=== PATIENT | male | born 1955 | race Caucasian/White ===

== ENCOUNTER 2021-09-26 08:10 | Emergency (ER) | payer BC, MEDICARE ==
[~2021-09-26] VITALS: Ht 170.2 cm; Wt 86.0 kg
[~2021-09-26 08:10] MED LIST: MVI PO
[2021-09-26] MEDS ORDERED: KETOROLAC 30MG/ML VIAL IV STA (08:17)
[2021-09-26] MEDS ORDERED: SODIUM CHLORIDE 0.9% 1,000 ML IV ONE (08:30)
[2021-09-26 09:00] LABS: CLARITY URINE CLEAR (CLEAR); COLOR URINE YELLOW (YELLOW); KETONES URINE NEGATIVE (NEGATIVE); LEUKOCYTE ESTERASE URINE NEGATIVE (NEGATIVE); NITRITE URINE NEGATIVE (NEGATIVE); OCCULT BLOOD URINE 3+ (NEGATIVE); PH URINE 6.5 (4.5-8.0); PROTEIN URINE NEGATIVE (NEGATIVE); SPECIFIC GRAVITY URINE 1.011 (1.005-1.030); UROBILINOGEN URINE 0.2 E.U./dL (0.2-1.0)
[2021-09-26 09:37] LABS: BASOPHILS % 0.5 % (0.0-2.0); EOSINOPHILS % 1.5 % (0.0-5.0); HEMATOCRIT. 41.3 % (42.0-52.0); HEMOGLOBIN. 14.1 g/dL (14.0-18.0); LYMPHOCYTES % 23.1 % (20.0-50.0); MEAN CORPUSCULAR HEMOGLOBIN 31.2 pg (28.0-32.0); MEAN CORPUSCULAR VOLUME 91.5 fL (80.0-94.0); MONOCYTES % 9.4 % (2.0-8.0); NEUTROPHILS % 65.5 % (40.0-76.0); PLATELET 305 x1000/uL (130-400); RED BLOOD CELL COUNT 4.52 mill/uL (4.7-6.1); RED CELL DISTRIBUTION WIDTH 13.5 % (11.6-14.6)
[2021-09-26 09:42] LABS: CHLORIDE 106 mEq/L (98-107)
[2021-09-26] MEDS ORDERED: KETOROLAC 30MG/ML VIAL IV NR (10:00)
[2021-09-26] MEDS ORDERED: TAMSULOSIN HCL 0.4MG SR CAPSULE PO ONE (10:15)
[2021-09-26] MEDS ORDERED: ONDA4TAB11 PO (11:04)
[2021-09-26] MEDS ORDERED: TRAM50TA3 MT (11:04)
[2021-09-26] MEDS ORDERED: CEPH500C2 MT (11:04)
[2021-09-26] MEDS ORDERED: TAMS-11 MT (11:04)
[2021-09-26 12:01] VITALS: BP 146/75
== END 2021-09-26 12:03 | disposition home or self-care (01) ==
LOC: ER 08:10
DX: N13.2 Hydronephrosis with renal and ureteral calculous obstruction (principal); I10 Essential (primary) hypertension; E05.90 Thyrotoxicosis, unspecified without thyrotoxic crisis or storm; K57.10 Diverticulosis of small intestine without perforation or abscess without bleeding; K80.20 Calculus of gallbladder without cholecystitis without obstruction
CPT/HCPCS: 36415; 74176; 80053; 81003; 83690; 85025; 87086; 96374; 99284; J1885; J7030

== ENCOUNTER 2021-10-25 12:45 | Inpatient (IN) | payer MEDICARE ==
[~2021-10-25] VITALS: Ht 170.2 cm; Wt 86.2 kg
[~2021-10-25 12:45] MED LIST changes: +CEPH500C2 MT; +ONDA4TAB11 PO; +TAMS-11 MT; +TRAM50TA3 MT
[2021-10-25 14:36] LABS: BASOPHILS % 0.2 % (0.0-2.0); HEMATOCRIT. 43.2 % (42.0-52.0); HEMOGLOBIN. 14.6 g/dL (14.0-18.0); LYMPHOCYTES % 12.8 % (20.0-50.0); MEAN CORPUSCULAR HEMOGLOBIN 30.6 pg (28.0-32.0); MEAN CORPUSCULAR VOLUME 90.4 fL (80.0-94.0); MEAN PLATELET VOLUME 7.9 fl (7.4-10.4); MONOCYTES % 8.2 % (2.0-8.0); NEUTROPHILS % 78.8 % (40.0-76.0); PLATELET 282 x1000/uL (130-400); RED BLOOD CELL COUNT 4.78 mill/uL (4.7-6.1); RED CELL DISTRIBUTION WIDTH 13.2 % (11.6-14.6)
[2021-10-25 14:48] LABS: CHLORIDE 103 mEq/L (98-107)
[2021-10-25] MEDS ORDERED: MORPHINE SULFATE 4 MG/ML CPJ (NOT FOR IM USE) IV STA (15:47)
[2021-10-25] MEDS ORDERED: ONDANSETRON HCL 4MG/2ML INJ IV STA (15:47)
[2021-10-25] MEDS ORDERED: SODIUM CHLORIDE 0.9% 1,000 ML IV ONE (16:00)
[2021-10-25] MEDS ORDERED: PIPERACILLIN/TAZOBACTAM 3.375GM/50ML PREMIX IV ONE (16:15)
[2021-10-25 16:17] LABS: CLARITY URINE CLEAR (CLEAR); COLOR URINE DARK YELLOW (YELLOW); KETONES URINE TRACE (NEGATIVE); LEUKOCYTE ESTERASE URINE TRACE (NEGATIVE); NITRITE URINE NEGATIVE (NEGATIVE); OCCULT BLOOD URINE NEGATIVE (NEGATIVE); PROTEIN URINE TRACE (NEGATIVE); SPECIFIC GRAVITY URINE 1.022 (1.005-1.030)
[2021-10-25] MEDS ORDERED: PIPERACILLIN/TAZ 3.375G PREMIX 50 ML IV NR (16:30)
[2021-10-25] MEDS ORDERED: ONDANSETRON HCL 4MG/2ML INJ IV PRN (17:30)
[2021-10-25] MEDS: DEXT 5%/0.45% NACL 1000ML 1,000 ML IV SCH (18:01)
[2021-10-25] MEDS: ENOXAPARIN 40MG/0.4ML SYR SUBCUT SCH (18:16)
[2021-10-25] MEDS: ACETAMINOPHEN 325MG TABLET PO PRN (20:00)
[2021-10-25 22:00] VITALS: BP 122/80
[2021-10-25] MEDS ORDERED: PIPERACILLIN/TAZOBACTAM 3.375 G in DEXTROSE 5% WATER 50 ML IV SCH (23:00)
[2021-10-25 23:23] VITALS: BP 127/80
[2021-10-26] VITALS: BP 131/77
[2021-10-26] MEDS: PIPERACILLIN/TAZOBACTAM 3.375 G in DEXTROSE 5% WATER 50 ML IV SCH ×4 (00:52→21:38)
[2021-10-26] MEDS: ACETAMINOPHEN 325MG TABLET PO PRN ×3 (03:25→16:41)
[2021-10-26] MEDS: DEXT 5%/0.45% NACL 1000ML 1,000 ML IV SCH ×2 (03:26→13:57)
[2021-10-26] MEDS ORDERED: MORPHINE SULFATE 2 MG/ML CPJ (NOT FOR IM USE) IV NR (03:30)
[2021-10-26 04:00] VITALS: BP 123/77
[2021-10-26 08:00] VITALS: BP 134/85
[2021-10-26] MEDS ORDERED: HYDROMORPHONE HCL/PF 2MG/ML CPJ IV PRN (08:45)
[2021-10-26] MEDS ORDERED: NALOXONE HCL 0.4MG/ML VIAL IV PRN (08:45)
[2021-10-26 13:14] LABS: HEMOGLOBIN. 13.9 g/dL (14.0-18.0); MEAN CORPUSCULAR HEMOGLOBIN 30.5 pg (28.0-32.0); MEAN PLATELET VOLUME 8.3 fl (7.4-10.4); PLATELET 243 x1000/uL (130-400); RED BLOOD CELL COUNT 4.57 mill/uL (4.7-6.1); RED CELL DISTRIBUTION WIDTH 13.5 % (11.6-14.6)
[2021-10-26 14:30] LABS: CHLORIDE 104 mEq/L (98-107)
[2021-10-26 14:41] LABS: AMYLASE 652 IU/L (25-115)
[2021-10-26 14:46] LABS: T4 FREE 1.26 ng/dL (0.76-1.46)
[2021-10-26 16:00] VITALS: BP 119/84
[2021-10-26 16:22] LABS: CREATINE KINASE 505 IU/L (39-308); CREATINE KINASE MB FRACTION 1.5 ng/mL (0.5-3.6)
[2021-10-26] MEDS: ENOXAPARIN 40MG/0.4ML SYR SUBCUT SCH (17:33)
[2021-10-26 20:00] VITALS: BP 132/65
[2021-10-26 21:13] LABS: PLATELET ESTIMATE NORMAL
[2021-10-27] VITALS: BP 108/70
[2021-10-27 00:31] LABS: CREATINE KINASE MB FRACTION 1.6 ng/mL (0.5-3.6)
[2021-10-27] MEDS: DEXT 5%/0.45% NACL 1000ML 1,000 ML IV SCH ×3 (03:49→19:30)
[2021-10-27 04:00] VITALS: BP 116/65
[2021-10-27] MEDS: PIPERACILLIN/TAZOBACTAM 3.375 G in DEXTROSE 5% WATER 50 ML IV SCH ×2 (05:41→14:00)
[2021-10-27 08:00] VITALS: BP 125/75
[2021-10-27] MEDS: ACETAMINOPHEN 325MG TABLET PO PRN (09:01)
[2021-10-27 09:20] LABS: BASOPHILS % 0.2 % (0.0-2.0); CHLORIDE 102 mEq/L (98-107); HEMATOCRIT. 39.2 % (42.0-52.0); HEMOGLOBIN. 13.1 g/dL (14.0-18.0); LYMPHOCYTES % 10.4 % (20.0-50.0); MEAN CORPUSCULAR HEMOGLOBIN 30.7 pg (28.0-32.0); MEAN PLATELET VOLUME 9.3 fl (7.4-10.4); NEUTROPHILS % 82.4 % (40.0-76.0); PLATELET 186 x1000/uL (130-400); RED BLOOD CELL COUNT 4.26 mill/uL (4.7-6.1); RED CELL DISTRIBUTION WIDTH 13.9 % (11.6-14.6)
[2021-10-27 09:26] LABS: INR 1.4; PARTIAL THROMBOPLASTIN TIME 42.3 sec (23.4-31.0); PROTHROMBIN TIME 15.1 sec (9.6-11.0)
[2021-10-27 09:32] LABS: CREATINE KINASE MB FRACTION 1.6 ng/mL (0.5-3.6)
[2021-10-27 09:50] LABS: AMYLASE 287 IU/L (25-115); PHOSPHORUS 1.8 mg/dL (2.5-4.9)
[2021-10-27 12:00] VITALS: BP 127/79
[2021-10-27] MEDS ORDERED: LIDOCAINE HCL 1% 20ML VIAL (Pyxis) INJ ONE (14:00)
[2021-10-27] MEDS ORDERED: BUPIVACAINE HCL/PF 0.5% (5MG/ML) 10ML ONE (14:00)
[2021-10-27] MEDS ORDERED: ONDANSETRON HCL 4MG/2ML INJ ONE (14:14)
[2021-10-27] MEDS ORDERED: LIDOCAINE HCL 1% 10 MG/ML 10ML VIAL ONE (14:14)
[2021-10-27] MEDS ORDERED: DEXAMETHASONE 4MG/ML 1ML VIAL ONE (14:14)
[2021-10-27] MEDS ORDERED: ROCURONIUM BROMIDE 10MG/ML VIAL 5ML IV ONE (14:14)
[2021-10-27] MEDS ORDERED: PROPOFOL 200MG/20ML VIAL IV ONE (14:14)
[2021-10-27] MEDS ORDERED: FENTANYL CITRATE/PF 50MCG/ML 2ML VIAL ONE (14:15)
[2021-10-27] MEDS ORDERED: MIDAZOLAM HCL 2 MG/2 ML VIAL ONE (14:15)
[2021-10-27] MEDS ORDERED: POLYMYXIN B SULFATE 500000 UNITS/VIAL ONE (14:19)
[2021-10-27] MEDS ORDERED: SKIN ADHESIVE 0.7 GM EA TOP ONE (14:19)
[2021-10-27] MEDS ORDERED: GLYCOPYRROLATE 0.2 MG/ML 2ML VIAL ONE (15:39)
[2021-10-27] MEDS ORDERED: NEOSTIGMINE METHYLSULFATE 1MG/ML 10 ML VIAL ONE (15:39)
[2021-10-27] MEDS ORDERED: ONDANSETRON HCL 4MG/2ML INJ IV PRN (16:15)
[2021-10-27] MEDS ORDERED: LABETALOL 5MG/ML SYR 20 MG/4 ML SYRINGE IV PRN (16:15)
[2021-10-27] MEDS ORDERED: MEPERIDINE HCL/PF 25MG/ML CPJ IV PRN (16:15)
[2021-10-27] MEDS ORDERED: HYDROCODONE/ACETAMINOPHEN 5/325MG TABLET PO PRN (16:45)
[2021-10-27] MEDS: ENOXAPARIN 40MG/0.4ML SYR SUBCUT SCH (18:00)
[2021-10-27] MEDS: HYDROMORPHONE HCL/PF 2MG/ML CPJ IV PRN (19:28)
[2021-10-27 20:00] VITALS: BP 157/76
[2021-10-27] MEDS ORDERED: IPRATROPIUM/ALBUTEROL 0.5-3(2.5)MG/3ML NEB ONE (22:11)
[2021-10-27 22:44] LABS: BG BASE EXCESS 0.7 mmol/L (-2.0-2.0); BG CARBOXYHEMOGLOBIN 0.1 % (0.5-1.5); BG DEOXYHEMOGLOBIN 5.4 % (0.0-5.0); BG FRACTION INSPIRED OXYGEN 36; BG HCO3 ACT 24.9 mmol/L (22.0-26.0); BG METHEMOGLOBIN 0.3 % (0.0-1.5); BG OXYGEN SATURATION 94.6 % (92.0-98.5); BG OXYHEMOGLOBIN 94.2 % (94.0-97.0); BG PCO2 38.8 mmHg (35.0-45.0); BG PH 7.426 (7.350-7.450); BG PO2 70.3 mmHg (75.0-100.0); BG SAMPLE SITE RIGHT RADIAL; BG TOTAL HEMOGLOBIN 12.7 g/dL (12.0-18.0); BG VENT MODE NASAL CANNULA
[2021-10-28] VITALS: BP 111/70
[2021-10-28] MEDS: PIPERACILLIN/TAZOBACTAM 3.375 G in DEXTROSE 5% WATER 50 ML IV SCH ×4 (01:03→21:33)
[2021-10-28] MEDS: IPRATROPIUM/ALBUTEROL 0.5-3(2.5)MG/3ML NEB HHN SCH ×6 (02:20→20:34)
[2021-10-28 04:00] VITALS: BP 121/62
[2021-10-28] MEDS: HYDROMORPHONE HCL/PF 2MG/ML CPJ IV PRN (05:54)
[2021-10-28 08:00] VITALS: BP 119/73
[2021-10-28 10:40] LABS: HEMATOCRIT. 35.1 % (42.0-52.0); HEMOGLOBIN. 11.8 g/dL (14.0-18.0); MEAN CORPUSCULAR HEMOGLOBIN 30.6 pg (28.0-32.0); MEAN CORPUSCULAR VOLUME 90.9 fL (80.0-94.0); MEAN PLATELET VOLUME 8.1 fl (7.4-10.4); PLATELET 213 x1000/uL (130-400); RED BLOOD CELL COUNT 3.86 mill/uL (4.7-6.1)
[2021-10-28 10:48] LABS: CHLORIDE 103 mEq/L (98-107)
[2021-10-28 10:58] LABS: AMYLASE 65 IU/L (25-115); PHOSPHORUS 2.5 mg/dL (2.5-4.9)
[2021-10-28 12:00] VITALS: BP 123/72
[2021-10-28] MEDS ORDERED: LOSA25TA26 MT (14:40)
[2021-10-28] MEDS ORDERED: LEVO25TA7 MT (14:40)
[2021-10-28 16:00] VITALS: BP 123/73
[2021-10-28] MEDS: ENOXAPARIN 40MG/0.4ML SYR SUBCUT SCH (17:01)
[2021-10-28 20:00] VITALS: BP 144/84
[2021-10-28 21:21] LABS: PLATELET ESTIMATE NORMAL
[2021-10-29] VITALS: BP 116/67
[2021-10-29] MEDS: IPRATROPIUM/ALBUTEROL 0.5-3(2.5)MG/3ML NEB HHN SCH ×6 (00:16→21:52)
[2021-10-29] MEDS: DEXT 5%/0.45% NACL 1000ML 1,000 ML IV SCH ×4 (01:55→21:39)
[2021-10-29 04:00] VITALS: BP 118/72
[2021-10-29] MEDS: HYDROMORPHONE HCL/PF 2MG/ML CPJ IV PRN ×2 (04:48→16:25)
[2021-10-29] MEDS: PIPERACILLIN/TAZOBACTAM 3.375 G in DEXTROSE 5% WATER 50 ML IV SCH ×3 (05:41→21:39)
[2021-10-29 07:57] LABS: BASOPHILS % 0.1 % (0.0-2.0); EOSINOPHILS % 0.8 % (0.0-5.0); HEMATOCRIT. 32.7 % (42.0-52.0); HEMOGLOBIN. 11.2 g/dL (14.0-18.0); LYMPHOCYTES % 17.2 % (20.0-50.0); MEAN CORPUSCULAR HEMOGLOBIN 31.1 pg (28.0-32.0); MEAN CORPUSCULAR VOLUME 90.8 fL (80.0-94.0); MEAN PLATELET VOLUME 7.9 fl (7.4-10.4); MONOCYTES % 8.2 % (2.0-8.0); NEUTROPHILS % 73.7 % (40.0-76.0); PLATELET 224 x1000/uL (130-400); RED BLOOD CELL COUNT 3.61 mill/uL (4.7-6.1); RED CELL DISTRIBUTION WIDTH 13.7 % (11.6-14.6)
[2021-10-29 08:00] VITALS: BP 125/74
[2021-10-29 08:43] LABS: CHLORIDE 107 mEq/L (98-107)
[2021-10-29 09:00] LABS: AMYLASE 49 IU/L (25-115)
[2021-10-29] MEDS ORDERED: POTASSIUM CHLORIDE 20MEQ TABLET SR PO NR (09:00)
[2021-10-29 12:00] VITALS: BP 125/74
[2021-10-29 16:00] VITALS: BP 156/87
[2021-10-29] MEDS: ENOXAPARIN 40MG/0.4ML SYR SUBCUT SCH (16:24)
[2021-10-29 20:00] VITALS: BP 128/85
[2021-10-30] VITALS (7 sets, daily range): BP systolic 112–140; BP diastolic 69–90
[2021-10-30] MEDS: IPRATROPIUM/ALBUTEROL 0.5-3(2.5)MG/3ML NEB HHN SCH ×5 (00:43→17:10)
[2021-10-30] MEDS: DEXT 5%/0.45% NACL 1000ML 1,000 ML IV SCH (05:38)
[2021-10-30] MEDS: PIPERACILLIN/TAZOBACTAM 3.375 G in DEXTROSE 5% WATER 50 ML IV SCH ×2 (05:38→13:36)
[2021-10-30 10:23] LABS: HEMOGLOBIN. 12.4 g/dL (14.0-18.0); MEAN CORPUSCULAR HEMOGLOBIN 31.2 pg (28.0-32.0); MEAN CORPUSCULAR VOLUME 91.1 fL (80.0-94.0); MEAN PLATELET VOLUME 7.7 fl (7.4-10.4); PLATELET 263 x1000/uL (130-400); RED BLOOD CELL COUNT 3.96 mill/uL (4.7-6.1); RED CELL DISTRIBUTION WIDTH 13.8 % (11.6-14.6)
[2021-10-30 10:48] LABS: CHLORIDE 102 mEq/L (98-107)
[2021-10-30 10:57] LABS: AMYLASE 65 IU/L (25-115)
[2021-10-30 22:32] LABS: PLATELET ESTIMATE NORMAL
== END 2021-10-30 17:59 | disposition home or self-care (01) | DRG 417 ==
LOC: ER 13:15 → SUPCPDRO 17:21 → 6EST 17:27 → ENRESERV 18:37 → 6WST 10-28 03:00 → 6EST 10-28 10:05
PROVIDERS: ADMIT Internal Medicine Nephrology; ATTEND Internal Medicine Nephrology
PROC: 0FT44ZZ Resection of Gallbladder, Percutaneous Endoscopic Approach (ICD-10-PCS; principal; 2021-10-25)
DX: K80.00 Calculus of gallbladder with acute cholecystitis without obstruction (principal); K85.10 Biliary acute pancreatitis without necrosis or infection; N39.0 Urinary tract infection, site not specified; R18.8 Other ascites; J98.11 Atelectasis; K82.8 Other specified diseases of gallbladder; E03.9 Hypothyroidism, unspecified; N20.0 Calculus of kidney; K40.20 Bilateral inguinal hernia, without obstruction or gangrene, not specified as recurrent; I10 Essential (primary) hypertension; E78.5 Hyperlipidemia, unspecified; D72.829 Elevated white blood cell count, unspecified; R79.89 Other specified abnormal findings of blood chemistry; E66.9 Obesity, unspecified; E88.09 Other disorders of plasma-protein metabolism, not elsewhere classified; R74.01 Elevation of levels of liver transaminase levels; Z20.822 Contact with and (suspected) exposure to COVID-19; F17.210 Nicotine dependence, cigarettes, uncomplicated; Z68.29 Body mass index [BMI] 29.0-29.9, adult; Z87.442 Personal history of urinary calculi
CPT/HCPCS: 36415; 36600; 71045; 74176; 74181; 76705; 78227; 80048; 80053; 80061; 80076; 81003; 82150; 82248; 82375; 82550; 82553; 82805; 83036; 83735; 83880; 84100; 84439; 84443; 84484; 85025; 85379; 87426; 88304; 93005; 93306; 94640; 99285; A9537; J1100; J1170; J1650; J2250; J2270; J2405; J2543; J2704; J2710; J3010; J3490; J7030; J7060